=== PATIENT | female | born 1975 | race Caucasian/White ===

== ENCOUNTER → 2020-11-04 | Outpatient (CLI) | payer OTHER ==
[~2020-11-04] MED LIST: IBU400 MG PO; KEFLEX500 MG PO; NORCO 5-325 TA1 EACH PO; VITAMIN D2 PO; VITAMIN D375 MCG PO
== END ==
LOC: KOH-I 08:55
DX: S92.351D Displaced fracture of fifth metatarsal bone, right foot, subsequent encounter for fracture with routine healing (principal); M19.071 Primary osteoarthritis, right ankle and foot; Z98.890 Other specified postprocedural states; X58.XXXD Exposure to other specified factors, subsequent encounter
CPT/HCPCS: 73630

== ENCOUNTER → 2021-01-07 | Outpatient (CLI) | payer OTHER | LOC: KOH-I 10:28 | DX: S92.351D Displaced fracture of fifth metatarsal bone, right foot, subsequent encounter for fracture with routine healing (principal); M19.071 Primary osteoarthritis, right ankle and foot; Z98.890 Other specified postprocedural states; X58.XXXD Exposure to other specified factors, subsequent encounter | CPT/HCPCS: 73630 ==

== ENCOUNTER → 2021-01-16 | Outpatient (CLI) | payer OTHER | LOC: KOH-I 08:39 | DX: S92.351D Displaced fracture of fifth metatarsal bone, right foot, subsequent encounter for fracture with routine healing (principal); X58.XXXA Exposure to other specified factors, initial encounter | CPT/HCPCS: 73700 ==

== ENCOUNTER → 2021-05-06 | Outpatient (CLI) | payer OTHER | LOC: KOH-I 15:16 | DX: S92.351A Displaced fracture of fifth metatarsal bone, right foot, initial encounter for closed fracture (principal) | CPT/HCPCS: 73630 ==

== ENCOUNTER → 2021-05-15 | Outpatient (CLI) | payer OTHER | LOC: KOH-I 05-12 09:30 | DX: S92.351K Displaced fracture of fifth metatarsal bone, right foot, subsequent encounter for fracture with nonunion (principal) | CPT/HCPCS: 73700 ==